=== PATIENT | male | born 1985 | race Caucasian/White ===

== ENCOUNTER 2021-05-16 14:06 | Emergency (ER) | payer SELFPAY ==
[2021-05-16 14:17] VITALS: BP 158/96; PULSE 90; RESP 16; TEMP 36.6; O2SAT 99; BMI 38.7
--- NOTE | 2021-05-16 14:52 | ED.GENADULT ---
HPI - General Adult General Chief complaint: General Medical Stated complaint: rabies exposure Time Seen by Provider: 05/16/21 14:45 Source: patient Limitations: no limitations History of Present Illness HPI narrative: Patient presents to the ER for rabies immunoglobulin and vaccine sent in by the state. Patient and his girlfriend had rescued a baby raccoon that was in the house for a month. When they gave the raccoon up the raccoon ventrally tested positive 2 weeks later for rabies at a rescue site. Patient is without any complaints at this time nausea vomiting chest pain fever chills denies taking any current medications. No other complaints at this time Related Data Allergies Allergy/AdvReac Type Severity Reaction Status Date / Time No Known Allergies Allergy Verified 05/16/21 14:18 Review of Systems Constitutional: Constitutional: Denies chills, Denies fever(s), Denies headache(s), Denies malaise and Denies weight loss ENT: Denies headache(s) and Denies sore throat Cardiovascular: Cardiovascular: Denies chest pain and Denies dyspnea Respiratory: Respiratory: Denies cough and Denies dyspnea Gastrointestinal: Gastrointestinal: Denies abdominal pain, Denies diarrhea, Denies nausea and Denies vomiting Musculoskeletal: Musculoskeletal: Denies back pain Neurologic: Denies headache(s) REPLACED BY [facility] Past Medical History Attestation statement: The following information was validated with the patient. Medical History No known health problems Social History Social History Advance Directives: No Advance Directives Information Provided: No Physical Exam Vital Signs: Vital Signs: Last Vital Signs Temp 97.8 F 05/16/21 14:17 Pulse 90 05/16/21 14:17 Resp 16 05/16/21 14:17 BP 158/96 H 05/16/21 14:17 Pulse Ox 99 05/16/21 14:17 Body Mass Index 38.7 vital signs have been reviewed as normal and appeared to be correct. Blood pressure normal. Heart rate normal. Respiration rate normal. Temperature normal. Oxygen saturation normal. Appearance: Alert. Oriented X3. No acute distress. Head: Normal external exam. Normocephalic. Atraumatic. Eyes: PERRLA. EOMI. ENT: Pharynx normal. Uvula midline. Moist mucous membranes. CVS: Heart regular rate and rhythm no murmurs and rubs Respiratory: Breath sounds are clear to auscultation bilaterally. No accessory muscle use noted. Skin: Skin warm and dry. Normal skin color. Normal skin turgor. No rashes/lesions/lacerations noted. Extremities: No lower extremity edema. Extremities exhibit normal range of motion. Neuro: Oriented X 3. No motor deficit. No sensory deficit. Reflexes normal. Course Course Course Narrative: Rabies vaccine Rabies exposure Rabies immune globulin patient will be given the 1st dose of the rabies vaccine and immunoglobulin per weight Discharge Plan Discharge Clinical Impression: Rabies exposure Patient Disposition: Home, Self-Care Instructions: Rabies Vaccine (By injection), Rabies Immune Globulin (By injection) Additional Instructions: return for rabies vaccine shot through medical day stay
[2021-05-16] MEDS: Rabies Vaccine (PCEC)/PF 1 ML VIAL IM (15:39)
[2021-05-16] MEDS: Rabies Immune Globulin/PF 1,500 UNIT/5 ML VIAL 2518 UNIT IM (15:39)
== END 2021-05-16 17:00 | disposition home or self-care (01) ==
PROVIDERS: Emergency Provider Emergency Medicine
DX: Z29.14 Encounter for prophylactic rabies immune globulin (principal); Z20.3 Contact with and (suspected) exposure to rabies
CPT/HCPCS: 90375; 90471; 90675; 96372; 99283; 99284

== ENCOUNTER 2021-05-19 09:36 | Outpatient (REF) | payer SELFPAY | END 2021-05-19 09:37 | disposition home or self-care (01) | LOC: HO.MDS 09:36 | PROVIDERS: Visit Provider Physician Assistant | DX: Z29.14 Encounter for prophylactic rabies immune globulin (principal); Z20.3 Contact with and (suspected) exposure to rabies | CPT/HCPCS: 90471; 90675 ==

== ENCOUNTER 2021-05-23 07:42 | Outpatient (REF) | payer SELFPAY | END 2021-05-23 07:43 | disposition home or self-care (01) | LOC: HO.MDS 07:42 | DX: Z29.14 Encounter for prophylactic rabies immune globulin (principal); Z20.3 Contact with and (suspected) exposure to rabies | CPT/HCPCS: 90471; 90675 ==

== ENCOUNTER 2021-05-30 07:37 | Outpatient (REF) | payer SELFPAY | END 2021-05-30 07:38 | disposition home or self-care (01) | LOC: HO.MDS 07:37 | DX: Z29.14 Encounter for prophylactic rabies immune globulin (principal); Z20.3 Contact with and (suspected) exposure to rabies | CPT/HCPCS: 90471; 90675 ==